=== PATIENT | male | born 1970 | race Caucasian/White ===

== ENCOUNTER 2016-06-05 10:15 | Emergency (ER) | payer BC, OTHER ==
[2016-06-05 13:24] VITALS: BP 143/90
--- NOTE | 2016-06-05 13:33 | UC ---
Respiratory Complaint HPI - HPI Summary HPI Summary: The patient comes in today for: 1. Fever, cough, headache, sinus congestion, shortness of breath: Onset: 1 week ago. Palliative/provocative: During the daytime, it seems better. Worse at night. Quality: pressure. Region: Sinuses Severity: 7/10 Time: Cough lasts a few seconds. Associated symptoms: Fever: No temperature taken, he had night sweats last night. Rhinitis: Bloody, Clear, Cough: Bloody phlegm in the Am, but more clear. Previous lung disease: None. Wheezing: None. Headache location: Occiput and frontal. Travel: [place] week ago, he was at the [place] (about 8,000) for 3 days, then he went to [place], [place], at almost 10,000 feet elevated for the rest of the week (4 days), He went to [place] at 5,000 2 days ago and flew into [place] last night. He hit his peak of respiratory symptoms 3 days ago. He is 70% better at this time. * - History of Current Complaint Chief Complaint: UCRespiratory Stated Complaint: COUGH/HEADACHE/FEVER Time Seen by Provider: 06/05/16 13:26 Hx Obtained From: Patient - Allergies/Home Medications Allergies/Adverse Reactions: Allergies Allergy/AdvReac Type Severity Reaction Status Date / Time Penicillins Allergy Unknown Verified 06/05/16 13:24 Reaction Details PMH/Surg Hx/FS Hx/Imm Hx Previously Healthy: Yes Endocrine History Of: Denies: Diabetes, Thyroid Disease, Hyperthyroidism, Hypothyroidism, Dyslipidemia Cardiovascular History Of: Denies: Cardiac Disorders, Hypertension, Pacemaker/ICD, Myocardial Infarction , Congestive Heart Failure, Atrial Fibrillation, Deep Vein Thrombosis, Bleeding Disorders Respiratory History Of: Denies: COPD, Asthma, Bronchitis, Pneumonia, Pulmonary Embolism GI/ History Of: Denies: Gastroesophageal Reflux, Ulcer, Gastrointestinal Bleed, Gall Bladder Disease, Kidney Stones, Diverticulitis, Renal Disease, Urosepsis Neurological History Of: Denies: TIA, CVA, Dementia, Seizures, Migraine Psychological History Of: Denies: Anxiety, Depression, Bipolar Disorder, Schizophrenia, Post Traumatic Stress Disorder Cancer History Of: Denies: Lung Cancer, Colorectal Cancer, Breast Cancer, Prostate Cancer, Cervical Cancer Other History Of: Negative For: HIV, Hepatitis B, Hepatitis C, Anticoagulant Therapy - Surgical History Surgical History: Yes Surgery Procedure, Year, and Place: COLLAR BONE SX - Family History Known Family History: Negative: Cardiac Disease, Hypertension - Social History Occupation: Employed Full-time Alcohol Use: Occasionally Substance Use Type: None Smoking Status (MU): Never Smoked Tobacco - Immunization History Most Recent Influenza Vaccination: April 2016 Most Recent Tetanus Shot: 11/15/14 Review of Systems Constitutional: Fever Skin: Negative Eyes: Negative ENT: Negative, Nasal Discharge Respiratory: Shortness Of Breath, Cough Cardiovascular: Negative Gastrointestinal: Negative Genitourinary: Negative All Other Systems Reviewed And Are Negative: Yes Physical Exam Triage Information Reviewed: Yes Appearance: Well-Appearing, No Pain Distress, Well-Nourished, Other: - HE has a dry cough in the exam room Vital Signs: Initial Vital Signs Temp 98.1 F 06/05/16 13:18 Pulse 80 06/05/16 13:18 Resp 16 06/05/16 13:18 BP 143/90 06/05/16 13:18 Pulse Ox 97 06/05/16 13:18 Vital Signs Reviewed: Yes Eyes: Positive: Conjunctiva Clear. Negative: Discharge ENT: Positive: Hearing grossly normal. Negative: Pharyngeal erythema, Nasal congestion, Nasal drainage, TM bulging, TM dull, TM red, Tonsillar swelling, Tonsillar exudate Dental: Negative: Gross Decay/Caries @, Dental Fracture @ Neck: Positive: Supple, Nontender, No Lymphadenopathy. Negative: Nuchal Rigidity Respiratory: Positive: Chest non-tender, No respiratory distress, No accessory muscle use, Other: - Inspiration/expiration cycle shortened?. Negative: Rhonchi , Wheezing Cardiovascular: Positive: RRR, No Murmur Abdomen Description: Positive: Nontender, No Organomegaly, Soft. Negative: Distended, Guarding Musculoskeletal: Positive: Strength Intact, ROM Intact, No Edema Neurological: Positive: Alert, Muscle Tone Normal Psychological: Positive: Age Appropriate Behavior, Consolable Skin: Negative: rashes, breakdown UC Diagnostic Evaluation - Laboratory O2 Sat by Pulse Oximetry: 97 Diagnostic Studies Comment: NO ACTIVE CARDIOPULMONARY DISEASE. - Radiology Xray Interpretation: No Acute Changes Radiology Interpretation Completed By: Radiologist Re-Evaluation - Re-Evaluation First Eval Change: Improved - Patient does not feel any better after the DuoNeb, and the lungs sound less hindered. Respiratory Course/Dx - Differential Dx/Diagnosis Differential Diagnosis/HQI/PQRI: Asthma, Bronchitis, Other - Altitude sickness Provider Diagnoses: Upper respiratory infection. Post infectious cough. Altitude sickness Discharge - Discharge Plan Condition: Stable Disposition: HOME Patient Education Materials: Mountain Sickness (ED), Upper Respiratory Infection (ED) Referrals: Сергей Alvarez DO [Primary Care Provider] - 1 Week (Please see your primary care provider later this week to see how well you are doing. If you get worse, please be seen sooner by us or the ER.)
[2016-06-05] MEDS ORDERED: Albuterol/Ipratropium NEB.SOL* Albuterol 2.5 MG/Ipratropium 0.5 MG 3 ML INH ONE (13:40)
--- NOTE | 2016-06-05 14:12 | RAD ---
HISTORY: Dyspnea, hemoptysis COMPARISONS: Chair 14 2006 VIEWS: 2: Frontal dual-energy and lateral views of the chest. FINDINGS: CARDIOMEDIASTINAL SILHOUETTE: The cardiomediastinal silhouette is normal. ROSAMARIA: The rosamaria are normal. PLEURA: The costophrenic angles are sharp. No pleural abnormalities are noted. LUNG PARENCHYMA: The lungs are clear. ABDOMEN: The upper abdomen is clear. There is no subphrenic gas. BONES AND SOFT TISSUES: The patient is status post internal fixation of the right clavicle OTHER: None. IMPRESSION: NO ACTIVE CARDIOPULMONARY DISEASE.
== END 2016-06-05 14:44 | disposition home or self-care (01) ==
LOC: UCCORT 10:15
DX: J06.9 Acute upper respiratory infection, unspecified (principal); R05 Cough; Z88.0 Allergy status to penicillin
CPT/HCPCS: 71020; 99212; A9270-GY; G0463